=== PATIENT | male | born 1980 | race Caucasian/White ===

== ENCOUNTER 2016-07-14 15:45 | Emergency (ER) | payer MEDICARE, MEDICAID ==
[2016-07-14 15:55] VITALS: BP 144/79
--- NOTE | 2016-07-14 16:28 | CT ---
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 Scan technique: Volume acquisition of data emergency unenhanced CT scan of the head obtained obtaine d with the patient lying supine on the Siemens multi slice CT scanner [place], [place]. All data archived in the PACS system for storage and study (bone/brain windows). Interpretation: 1. Uniformly thick bony calvarium without sign of skull fracture, underlying brain contusion or epid ural/subdural hematoma. 2. Symmetric clear pneumatization of the mastoid and paranasal sinuses. 3. Magna cisterna magna variant posteriorly. 4. No supratentorial or posterior fossa mass lesion, hydrocephalus, ischemic infarct or signs of acu te intracerebral/intraventricular/subarachnoid bleed. CONCLUSION: No sign of skull fracture or closed head trauma.
--- NOTE | 2016-07-14 16:31 | EDM.PDOC ---
ED HPI HEAD INJURY - General Chief Complaint: Head Injury Stated Complaint: HIT ON HEAD, [id number] Time Seen by Provider: 07/14/16 16:00 Source of Information: Reports: Family (mother), RN, RN notes reviewed History Limitations: Reports: Physical impairment (DE/disabled) - History of Present Illness INITIAL COMMENTS - FREE TEXT/NARRATIVE: Presented to the ER from home by mother by POV with complaint of head injury. Mother states it was unwitnessed. It was apparent he had struck his head on a metal bar attached to his desk. She does not believe there was loss of consciousness, but is unsure. Patient indicated to her that he had struck his head on the metal bar. He was having pain. Denies any other injury. Patient is unable to provide any history. Symptom Onset Date: 07/14/16 Place of Occurrence: home Improves with: none Worsens with: none Associated Symptoms: Reports: no other symptoms - Related Data Allergies/ADRs: Allergies Allergy/AdvReac Type Severity Reaction Status Date / Time No Known Allergies Allergy Verified 07/14/16 16:05 Home Meds: Home Meds . 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 Social & Family History - Family History Family Medical History: Noncontributory - Tobacco Use Smoking Status *Q: Never Smoker Second Hand Smoke Exposure: No - Caffeine Use Caffeine Use: Reports: None - Recreational Drug Use Recreational Drug Use: No - Living Situation & Occupation Living situation: Reports: with family Occupation: disabled ED ROS GENERAL - Review of Systems Review Of Systems: Unable To Obtain ED EXAM, HEAD INJURY - Physical Exam Exam: See Below Exam Limited By: Physical impairment (nonverbal/DD.) General Appearance: alert, WD/WN, no apparent distress Head: normocephalic, scalp tenderness Eyes: bilateral eye: normal inspection Ears: normal external exam, normal canal, hearing grossly normal, normal TMs Nose: normal inspection, normal mucousa, no blood Throat/Mouth: Normal inspection, Normal lips, Normal gums, Normal oropharynx, No airway compromise Neck: non-tender, full range of motion, normal alignment, normal inspection Respiratory: no respiratory distress, lungs clear, normal breath sounds, no accessory muscle use, chest non-tender Cardiovascular: regular rate, rhythm Back Exam: normal inspection Extremities: no evidence of injury, normal range of motion, non-tender, no pedal edema, pelvis stable Neurologic: no motor/sensory deficits (Uable to completely assess neuro exam due to mental delay, however, no obvious deficits.) Course - Vital Signs Last Recorded V/S: Last Vital Signs Temp 36.8 C 07/14/16 15:54 Pulse 84 07/14/16 15:54 Resp 18 07/14/16 15:54 BP 144/79 H 07/14/16 15:54 Pulse Ox 97 07/14/16 15:54 - Orders/Labs/Meds Labs: Laboratory Tests 07/14/16 07/14/16 07/14/16 Range/Units 16:37 16:37 17:10 WBC 7.4 (5.0-10.0) 10^3/uL RBC 4.79 (4.6-6.2) 10^6/uL Hgb 14.9 (14.0-18.0) g/dL Hct 43.4 (40.0-54.0) % MCV 90.6 (80-100) fL MCH 31.1 (27.0-34.0) pg MCHC 34.3 (33.0-35.0) g/dL Plt Count 183 (150-450) 10^3/uL Neut % (Auto) 71.0 (42.2-75.2) % Lymph % (Auto) 20.3 L (20.5-50.1) % [place] % (Auto) 7.7 (2-8) % Eos % (Auto) 0.5 L (1.0-3.0) % Baso % (Auto) 0.5 (0.0-1.0) % Sodium 137 (135-145) mmol/L Potassium 3.8 (3.6-5.0) mmol/L Chloride 105 (101-111) mmol/L Carbon Dioxide 25.0 (21.0-31.0) mmol/L Anion Gap 10.8 BUN 16 (7-18) mg/dL Creatinine 0.8 (0.6-1.3) mg/dL Est Cr Clr Drug Dosing 106.89 mL/min Estimated GFR (MDRD) > 60 BUN/Creatinine Ratio 20.00 Glucose 77 (74-105) mg/dL Calcium 8.7 (8.4-10.2) mg/dl Total Bilirubin 0.7 (0.2-1.0) mg/dL AST 25 (10-42) IU/L ALT 33 (10-60) IU/L Alkaline Phosphatase 65 (42-121) IU/L Total Protein 7.3 (6.7-8.2) g/dl Albumin 4.4 (3.2-5.5) g/dl Globulin 2.9 Albumin/Globulin Ratio 1.52 Urine Color Yellow (YELLOW) Urine Appearance Slightly cloudy (CLEAR) Urine pH 5.5 (5.0-9.0) Ur Specific [place] 1.020 (1.005-1.030) Urine Protein Negative (NEGATIVE) Urine Glucose (UA) Negative (NEGATIVE) Urine Ketones Negative (NEGATIVE) Urine Occult Blood Negative (NEGATIVE) Urine Nitrite Negative (NEGATIVE) Urine Bilirubin Negative (NEGATIVE) Urine Urobilinogen 0.2 (0.2-1.0) mg/dL Ur Leukocyte Esterase Negative (NEGATIVE) Urine RBC 0-5 /HPF Urine WBC Not seen (0-5/HPF) /HPF Amorphous Sediment Rare (0/HPF) /HPF Urine Mucus Few H /LPF Urine Opiates Screen (NEGATIVE) Ur Oxycodone Screen (NEGATIVE) Urine Methadone Screen (NEGATIVE) Ur Barbiturates Screen (NEGATIVE) U Tricyclic Antidepress (NEGATIVE) Ur Phencyclidine Scrn (NEGATIVE) Ur Amphetamine Screen (NEGATIVE) U Methamphetamines Scrn (NEGATIVE) Urine MDMA Screen (NEGATIVE) U Benzodiazepines Scrn (NEGATIVE) Urine Cocaine Screen (NEGATIVE) U Marijuana (THC) Screen (NEGATIVE) Ethyl Alcohol < 5 mg/dL 07/14/16 Range/Units 17:10 WBC (5.0-10.0) 10^3/uL RBC (4.6-6.2) 10^6/uL Hgb (14.0-18.0) g/dL Hct (40.0-54.0) % MCV (80-100) fL MCH (27.0-34.0) pg MCHC (33.0-35.0) g/dL Plt Count (150-450) 10^3/uL Neut % (Auto) (42.2-75.2) % Lymph % (Auto) (20.5-50.1) % [place] % (Auto) (2-8) % Eos % (Auto) (1.0-3.0) % Baso % (Auto) (0.0-1.0) % Sodium (135-145) mmol/L Potassium (3.6-5.0) mmol/L Chloride (101-111) mmol/L Carbon Dioxide (21.0-31.0) mmol/L Anion Gap BUN (7-18) mg/dL Creatinine (0.6-1.3) mg/dL Est Cr Clr Drug Dosing mL/min Estimated GFR (MDRD) BUN/Creatinine Ratio Glucose (74-105) mg/dL Calcium (8.4-10.2) mg/dl Total Bilirubin (0.2-1.0) mg/dL AST (10-42) IU/L ALT (10-60) IU/L Alkaline Phosphatase (42-121) IU/L Total Protein (6.7-8.2) g/dl Albumin (3.2-5.5) g/dl Globulin Albumin/Globulin Ratio Urine Color (YELLOW) Urine Appearance (CLEAR) Urine pH (5.0-9.0) Ur Specific [place] (1.005-1.030) Urine Protein (NEGATIVE) Urine Glucose (UA) (NEGATIVE) Urine Ketones (NEGATIVE) Urine Occult Blood (NEGATIVE) Urine Nitrite (NEGATIVE) Urine Bilirubin (NEGATIVE) Urine Urobilinogen (0.2-1.0) mg/dL Ur Leukocyte Esterase (NEGATIVE) Urine RBC /HPF Urine WBC (0-5/HPF) /HPF Amorphous Sediment (0/HPF) /HPF Urine Mucus /LPF Urine Opiates Screen Negative (NEGATIVE) Ur Oxycodone Screen Negative (NEGATIVE) Urine Methadone Screen Negative (NEGATIVE) Ur Barbiturates Screen Negative (NEGATIVE) U Tricyclic Antidepress Negative (NEGATIVE) Ur Phencyclidine Scrn Negative (NEGATIVE) Ur Amphetamine Screen Negative (NEGATIVE) U Methamphetamines Scrn Negative (NEGATIVE) Urine MDMA Screen Negative (NEGATIVE) U Benzodiazepines Scrn Negative (NEGATIVE) Urine Cocaine Screen Negative (NEGATIVE) U Marijuana (THC) Screen Negative (NEGATIVE) Ethyl Alcohol mg/dL - Radiology Interpretation Free Text/Narrative:: Head CT: No acute intracranail findings per rad report. Departure - Departure Time of Disposition: 17:39 Disposition: Home, Self-Care 01 Condition: good Clinical Impression: Concussion without loss of consciousness Qualifiers: Encounter type: initial encounter Qualified Code(s): S06.0X0A - Concussion without loss of consciousness, initial encounter Instructions: Concussion, Adult, [id number] Forms: ED Department Discharge Additional Instructions: Follow instructions on concussion discharge packet. Follow up in clinic in 5 to 7 days for recheck.
[2016-07-14 17:03] LABS: CHLORIDE,CL 105 mmol/L (101-111); SODIUM,NA 137 mmol/L (135-145)
== END 2016-07-14 17:48 | disposition home or self-care (01) ==
LOC: DL.ED 15:45
DX: S06.0X0A Concussion without loss of consciousness, initial encounter (principal); Z86.73 Personal history of transient ischemic attack (TIA), and cerebral infarction without residual deficits; W22.8XXA Striking against or struck by other objects, initial encounter; Y92.009 Unspecified place in unspecified non-institutional (private) residence as the place of occurrence of the external cause
CPT/HCPCS: 36415; 70450; 80053; 80305; 81001; 85025; 99283; G0480

== ENCOUNTER 2016-08-19 07:04 | Emergency (ER) | payer MEDICARE, MEDICAID ==
[2016-08-19 07:18] VITALS: BP 139/77
--- NOTE | 2016-08-19 07:20 | EDM.PDOC ---
{null, ED HPI GENERAL MEDICAL PROBLEM - General Stated Complaint: LEFT SHOULDER Time Seen by Provider: 08/19/16 07:14 - History of Present Illness INITIAL COMMENTS - FREE TEXT/NARRATIVE: patient comes emergency Department today with his mother who is also his guardian and caregiver. History taking is somewhat limited as the patient is nonverbal with medical staff. According to the mother over the past 2 days he has complained of left shoulder pain. The mother denies any trauma to left shoulder. She believes that his left shoulder pain is from "wrenching" on many things that he does with a screwdriver. He has not taken anything for pain as she cannot get him to take anything for pain. He continues to move his arm without difficulty. She has tried heating pad with some improvement of the pain. He has never had anything like this in the past. - Related Data Allergies Allergy/AdvReac Type Severity Reaction Status Date / Time No Known Allergies Allergy Verified 07/14/16 16:05 Home Meds: Home Meds . 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 Social & Family History - Family History Family Medical History: Noncontributory - Tobacco Use Smoking Status *Q: Never Smoker Second Hand Smoke Exposure: No - Caffeine Use Caffeine Use: Reports: None - Recreational Drug Use Recreational Drug Use: No - Living Situation & Occupation Living situation: Reports: with Family Occupation: Disabled Review of Systems - Review of Systems Review Of Systems: Unable To Obtain Trauma Exam - Physical Exam Exam: See Below Exam Limited By: Other (nonverbal) General Appearance: Reports: Alert, WD/WN, No Apparent Distress Neck: Reports: Non-Tender, Full Range of Motion, Normal Alignment, Normal Inspection Respiratory Exam: Reports: No Respiratory Distress, Lungs Clear, Normal Breath Sounds, No Accessory Muscle Use, Chest Non-Tender Cardiovascular: Reports: Normal Peripheral Pulses, Regular Rate, Rhythm Extremities: No Evidence of Injury, Other (examination the shoulder is somewhat limited due to the patient's inability to follow directions and commands. There is no bruising swelling deformity erythema crepitus bony deformity of the left shoulder the left upper arm. There is some tenderness generalized over the shoulder although it is difficult to identify where it is specifically due to the patient's mental status. He does move the extremity to active range of motion spontaneously. CMS is intact to left upper extremity. There is no weakness but is able to be identified. Unremarkable exam of the left upper extremity. CMS is intact appropriate.) Course - Vital Signs Last Recorded V/S: Last Vital Signs Temp 36.6 C 08/19/16 07:17 Pulse 69 08/19/16 07:17 Resp 16 08/19/16 07:17 BP 139/77 08/19/16 07:17 Pulse Ox 97 08/19/16 07:17 - Orders/Labs/Meds Orders: Active Orders 24 hr Category Date Time Status Shoulder Comp Lt [CR] Urgent Exams 08/19/16 07:20 Taken DME for Discharge [COMM] Stat Oth 08/19/16 07:53 Ordered Meds: Medications Discontinued Medications Generic Name Dose Route Start Last Admin Trade Name Freq PRN Reason Stop Dose Admin Ketorolac Tromethamine 30 mg 08/19/16 07:21 08/19/16 07:34 Toradol IM 08/19/16 07:22 Not Given ONETIME ONE - Radiology Interpretation Free Text/Narrative:: x-ray of the left shoulder per radiology multiple small sclerotic densities in the proximal humeral shaft, possibly bone islands. Without other findings to account for pain, suggest MRI. Departure - Departure Time of Disposition: 07:55 Disposition: Home, Self-Care 01 Condition: good Clinical Impression: Sprain of shoulder Qualifiers: Encounter type: initial encounter Shoulder sprain type: unspecified sprain Laterality: left Qualified Code(s): S43.402A - Unspecified sprain of left shoulder joint, initial encounter - Discharge Information Instructions: How to Use a Sling, [id number], Shoulder Pain, [id number] Additional Instructions: wear sling as much is possible over the next couple of days. Slowly increase range of motion. Tylenol and/or ibuprofen as needed for pain. Ice and/or heat to the left shoulder. return to emergency Department if any new or worsening symptoms. Recheck primary care provider or orthopedics in one week if not improving consider physical therapy her MRI at that time. - My Orders Last 24 Hours: My Active Orders 08/19/16 07:20 Shoulder Comp Lt [CR] Urgent 08/19/16 07:53 DME for Discharge [COMM] Stat - Assessment/Plan Last 24 Hours: My Active Orders 08/19/16 07:20 Shoulder Comp Lt [CR] Urgent 08/19/16 07:53 DME for Discharge [COMM] Stat Assessment:: Left shoulder strain Plan: wear sling as much is possible over the next couple of days. Slowly increase range of motion. Tylenol and/or ibuprofen as needed for pain. Ice and/or heat to the left shoulder. return to emergency Department if any new or worsening symptoms. Recheck primary care provider or orthopedics in one week if not improving consider physical therapy her MRI at that time. }
[2016-08-19] MEDS ORDERED: Ketorolac 30 MG/ML SDV IM ONE (07:21)
== END 2016-08-19 08:02 | disposition home or self-care (01) ==
LOC: DL.ED 07:04
DX: S43.402A Unspecified sprain of left shoulder joint, initial encounter (principal); X58.XXXA Exposure to other specified factors, initial encounter
CPT/HCPCS: 73030-LT; 99283

== ENCOUNTER 2017-02-18 09:06 | Emergency (ER) | payer MEDICARE, MEDICAID ==
[2017-02-18 09:19] VITALS: BP 135/76
[2017-02-18] MEDS ORDERED: Lidocaine 1% 30 ML SDV INJECT ONE (09:28)
[2017-02-18] MEDS ORDERED: Bacitracin Oint 1 GM U/D Packet TOP ONE (09:28)
--- NOTE | 2017-02-18 09:51 | EDM.PDOC ---
ED HPI GENERAL MEDICAL PROBLEM - General Chief Complaint: Laceration Stated Complaint: CUT TO RIGHT INDEX FINGER Time Seen by Provider: 02/18/17 09:30 Source of Information: Reports: Family History Limitations: Reports: No Limitations - History of Present Illness INITIAL COMMENTS - FREE TEXT/NARRATIVE: This 37 yo male patient was brought to the ED due to a laceration to his right distal index finger. The patient's mother believes the patient was working with a screwdriver when he cut his finger. The patient would not answer questions regarding the incident. Onset: Today Duration: Minutes: Location: Reports: Upper Extremity, Right Quality: Reports: Ache, Sharp Severity: Mild Improves with: Reports: None Worsens with: Reports: None Associated Symptoms: Reports: No Other Symptoms - Related Data Allergies Allergy/AdvReac Type Severity Reaction Status Date / Time ampicillin Allergy Stomach Verified 02/18/17 09:15 Ache Home Meds: Home Meds . 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 Psychiatric History: Reports: ADD, ADHD Other Psychiatric History: pervasive personality Endocrine/Metabolic History: Reports: None Hematologic History: Reports: None Immunologic History: Reports: None Oncologic (Cancer) History: Reports: None Dermatologic History: Reports: None - Infectious Disease History Infectious Disease History: Reports: None - Past Surgical History HEENT Surgical History: Reports: None Cardiovascular Surgical History: Reports: None Respiratory Surgical History: Reports: None GI Surgical History: Reports: None Male Surgical History: Reports: None Endocrine Surgical History: Reports: None Musculoskeletal Surgical History: Reports: None Social & Family History - Family History Family Medical History: Noncontributory - Tobacco Use Smoking Status *Q: Never Smoker Second Hand Smoke Exposure: No - Caffeine Use Caffeine Use: Reports: Soda - Recreational Drug Use Recreational Drug Use: No - Living Situation & Occupation Living situation: Reports: with Family Occupation: Disabled ED ROS GENERAL - Review of Systems Review Of Systems: ROS reveals no pertinent complaints other than HPI. ED EXAM, SKIN/RASH Exam: See Below Exam Limited By: No Limitations General Appearance: Alert, WD/WN, Mild Distress Eye Exam: Bilateral Eye: EOMI, Normal Inspection, PERRL Ears: Normal External Exam, Normal Canal, Hearing Grossly Normal, Normal TMs Nose: Normal Inspection, Normal Mucosa, No Blood Throat/Mouth: Normal Inspection, Normal Lips, Normal Teeth, Normal Gums, Normal Oropharynx, Normal Voice, No Airway Compromise Head: Atraumatic, Normocephalic Neck: Normal Inspection, Supple, Non-Tender, Full Range of Motion Respiratory/Chest: No Respiratory Distress, Lungs Clear, Normal Breath Sounds, No Accessory Muscle Use, Chest Non-Tender Cardiovascular: Normal Peripheral Pulses, Regular Rate, Rhythm, No Edema, No Gallop, No JVD, No Murmur, No Rub GI/Abdominal: Normal Bowel Sounds, Soft, Non-Tender, No Organomegaly, No Distention, No Abnormal Bruit, No Mass (Male) Exam: Deferred Rectal (Males) Exam: Deferred Back Exam: Normal Inspection, Full Range of Motion, NT Extremities: Normal Range of Motion, No Pedal Edema, Normal Capillary Refill, Other (laceration to right distal index finger) Neurological: Alert, Oriented, CN II-XII Intact, Normal Cognition, Normal Gait, Normal Reflexes, No Motor/Sensory Deficits Psychiatric: Normal Affect, Normal Mood Skin: Warm, Dry, Normal Color, No Rash Characteristics: Linear Associated features: Tenderness Lymphatic: No Adenopathy ED SKIN PROCEDURES - Laceration/Wound Repair Right Distal Finger Lac/Wound length In cm: 1.5 Appearance: Subcutaneous Distal NVT: Neuro & Vascular Intact Anesthetic Type: Local Local Anesthesia - Lidocaine (Xylocaine): 1% Plain Local Anesthetic Volume: 3cc Skin Prep: Chlorhexidine (Hibiciens) Exploration/Debridement/Repair: In a Bloodless Field, Explored to Base, Moderate Debridement, Multiple Flaps Aligned Closed with: Sutures Suture Size: 4-0 # of Sutures: 4 Suture Type: Prolene, Interrupted, Simple Sterile Dressing Applied: Nurse Tetanus Status Addressed: Yes Complications: No Course - Vital Signs Last Recorded V/S: Last Vital Signs Temp 37.2 C 02/18/17 09:18 Pulse 77 02/18/17 09:18 Resp 16 02/18/17 09:18 BP 135/76 02/18/17 09:18 Pulse Ox 97 02/18/17 09:18 - Orders/Labs/Meds Meds: Medications Discontinued Medications Generic Name Dose Route Start Last Admin Trade Name Marlen PRN Reason Stop Dose Admin Bacitracin 1 dose 02/18/17 09:28 02/18/17 09:32 Bacitracin Oint 1 Gm TOP 02/18/17 09:29 1 dose ONETIME ONE Administration Lidocaine HCl 30 ml 02/18/17 09:28 02/18/17 09:32 Xylocaine-Mpf 1% INJECT 02/18/17 09:29 30 ml ONETIME ONE Administration Departure - Departure Time of Disposition: 09:46 Disposition: Home, Self-Care 01 Condition: Fair Clinical Impression: Laceration of right index finger Qualifiers: Encounter type: initial encounter Damage to nail status: without damage Foreign body presence: without foreign body Qualified Code(s): S61.210A - Laceration without foreign body of right index finger without damage to nail, initial encounter - Discharge Information Instructions: Laceration Care, Adult, [id number] Care Plan Goals: The patient and mother were advised of the examination results during the visit. The laceration margins were well approximated during the visit. The patient should keep the area clean and dry over the next 48 hours. The patient should follow-up with his primary care facility in 10-14 days. If the patient has any additional symptoms or concerns, the patient should follow-up with his primary care facility or return to the emergency department.
== END 2017-02-18 10:09 | disposition home or self-care (01) ==
LOC: DL.ED 09:06
DX: S61.210A Laceration without foreign body of right index finger without damage to nail, initial encounter (principal); Z88.1 Allergy status to other antibiotic agents; X58.XXXA Exposure to other specified factors, initial encounter
CPT/HCPCS: 12001; 99282

== ENCOUNTER 2017-03-08 20:44 | Emergency (ER) | payer MEDICARE, MEDICAID ==
--- NOTE | 2017-03-08 21:24 | EDM.PDOC ---
ED HPI GENERAL MEDICAL PROBLEM - General Chief Complaint: Wound Recheck Stated Complaint: STITCHES COMING OUT, [id number] Time Seen by Provider: 03/08/17 21:15 Source of Information: Reports: Patient History Limitations: Reports: No Limitations - History of Present Illness INITIAL COMMENTS - FREE TEXT/NARRATIVE: This 37 yo male patient reports to the ED to have his sutures removed. The patient refused to go to the clinic to have the sutures removed, so was brought to the ED. Onset: Today Right 2-Index finger Pain Score (Numeric/FACES): 2 - Related Data Allergies Allergy/AdvReac Type Severity Reaction Status Date / Time ampicillin Allergy Stomach Verified 03/08/17 21:13 Ache Home Meds: Home Meds . 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 Psychiatric History: Reports: ADD, ADHD Other Psychiatric History: pervasive personality Endocrine/Metabolic History: Reports: None Hematologic History: Reports: None Immunologic History: Reports: None Oncologic (Cancer) History: Reports: None Dermatologic History: Reports: None - Infectious Disease History Infectious Disease History: Reports: None - Past Surgical History HEENT Surgical History: Reports: None Cardiovascular Surgical History: Reports: None Respiratory Surgical History: Reports: None GI Surgical History: Reports: None Male Surgical History: Reports: None Endocrine Surgical History: Reports: None Musculoskeletal Surgical History: Reports: None Social & Family History - Family History Family Medical History: Noncontributory - Tobacco Use Smoking Status *Q: Never Smoker Second Hand Smoke Exposure: No - Caffeine Use Caffeine Use: Reports: Soda - Recreational Drug Use Recreational Drug Use: No - Living Situation & Occupation Living situation: Reports: with Family Occupation: Disabled ED ROS GENERAL - Review of Systems Review Of Systems: ROS reveals no pertinent complaints other than HPI. ED EXAM, SKIN/RASH Exam: See Below Exam Limited By: No Limitations General Appearance: Alert, WD/WN, No Apparent Distress Eye Exam: Bilateral Eye: Normal Inspection Ears: Normal External Exam Nose: Normal Inspection Throat/Mouth: Normal Inspection, Normal Lips, Normal Teeth, Normal Gums, Normal Oropharynx, Normal Voice, No Airway Compromise Neck: Normal Inspection, Supple, Non-Tender, Full Range of Motion Respiratory/Chest: No Respiratory Distress, Lungs Clear, Normal Breath Sounds, No Accessory Muscle Use, Chest Non-Tender Cardiovascular: Normal Peripheral Pulses, Regular Rate, Rhythm (Male) Exam: Deferred Rectal (Males) Exam: Deferred Extremities: Other (wound appears to be well healed sutures were removed without incident.) Course - Vital Signs Last Recorded V/S: Last Vital Signs Temp 36.8 C 03/08/17 21:08 Pulse 88 03/08/17 21:08 Resp 18 03/08/17 21:08 BP 140/86 03/08/17 21:08 Pulse Ox 98 03/08/17 21:08 Departure - Departure Time of Disposition: 21:23 Disposition: Home, Self-Care 01 Condition: Good Clinical Impression: Visit for suture removal - Discharge Information Instructions: Suture Removal, Care After Forms: ED Department Discharge Care Plan Goals: The patient was advised of the examination results during the visit. The sutures were removed without incident. If the patient has any additional symptoms or concerns, the patient should follow-up with his primary care facility or return to the emergency department.
[2017-03-08 21:28] VITALS: BP 126/68
== END 2017-03-08 21:31 | disposition home or self-care (01) ==
LOC: DL.ED 20:44
DX: S61.210D Laceration without foreign body of right index finger without damage to nail, subsequent encounter (principal); Z88.1 Allergy status to other antibiotic agents; X58.XXXD Exposure to other specified factors, subsequent encounter
CPT/HCPCS: 99281

== ENCOUNTER 2017-06-15 12:50 | Emergency (ER) | payer MEDICARE, MEDICAID ==
[2017-06-15 13:14] VITALS: BP 127/73
[2017-06-15 13:43] LABS: CHLORIDE,CL 102 mmol/L (101-111); SODIUM,NA 135 mmol/L (135-145)
[2017-06-15 13:45] LABS: ACETAMINOPHEN < 10
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
== END 2017-06-15 17:50 ==
LOC: DL.ED 12:50
DX: F99 Mental disorder, not otherwise specified (principal); Z88.1 Allergy status to other antibiotic agents
CPT/HCPCS: 36415; 80053; 80305; 81001; 82140; 82150; 83690; 83735; 85025; 99285; G0480